=== PATIENT | female | born 1990 | race African-American/Black ===

== ENCOUNTER → 2023-12-09 13:10 | Outpatient (REF) | payer OTHER, SELFPAY | LOC: HWRAD 13:10 | PROVIDERS: ATTENDING PHYSICIAN Chiropractor | DX: M99.03 Segmental and somatic dysfunction of lumbar region (principal); M53.2X7 Spinal instabilities, lumbosacral region; M62.40 Contracture of muscle, unspecified site | CPT/HCPCS: 72110 ==